=== PATIENT | female | born 1995 | race Caucasian/White ===

== ENCOUNTER → 2018-03-13 14:19 | Outpatient (CLI) | payer BC, SELFPAY ==
[2018-03-13 15:55] LABS: Hematocrit 36.5 % (37-47); Hemoglobin 12.7 g/dl (12.0-15.0); Mean Corp Hgb Conc 34.8 g/gl (32-36); Mean Corpuscular Hgb 31.5 pg (27.0-32.0); Mean Corpuscular Volume 90.6 fL (81-99); Mean Platelet Vol. 11.1 fl (6.2-12.0); Platelet Count 248 K/mm3 (150-450); RBC Distribution Width CV 13.1 % (11.6-14.6); RBC Distribution Width SD 42.7 fl (35.1-43.9); Red Blood Count 4.03 M/mm3 (4.2-5.4); White Blood Count 13.9 K/mm3 (4.4-11.0)
[2018-03-13 16:04] LABS: Scan Indicated on CBC? Y/N NO
[2018-03-13 16:05] LABS: Glucose Challenge Gest 1H 50g 134 mg/dL (70-140)
== END ==
PROVIDERS: Visit Provider Obstetrics & Gynecology
DX: Z34.82 Encounter for supervision of other normal pregnancy, second trimester (principal)
CPT/HCPCS: 36415; 82950; 85027

== ENCOUNTER → 2018-05-13 15:40 | Outpatient (CLI) | payer BC, SELFPAY ==
[2018-05-13 19:45] LABS: Group B Strep DNA By PCR Negative (Negative); Internal Control PASS; Probe Check PASS; Specimen Processing Control PASS
== END ==
PROVIDERS: Visit Provider Obstetrics & Gynecology
DX: Z36.85 Encounter for antenatal screening for Streptococcus B (principal)
CPT/HCPCS: 87081; 87653

== ENCOUNTER 2018-06-16 18:43 | Inpatient (IN) | payer BC, SELFPAY ==
[2018-06-16] MEDS: Lactated Ringers 1,000 ML 50 ML IV (19:45)
[2018-06-16] MEDS: 0.9% Saline Lock 10 ML Syringe IV (19:56)
[2018-06-16] MEDS: miSOPROStol 25 MCG TABLET VAGINAL (19:56)
[2018-06-16 20:00] LABS: Hematocrit 34.1 % (37-47); Hemoglobin 11.2 g/dl (12.0-15.0); Mean Corp Hgb Conc 32.8 g/gl (32-36); Mean Corpuscular Hgb 28.1 pg (27.0-32.0); Mean Corpuscular Volume 85.7 fL (81-99); Mean Platelet Vol. 11.9 fl (6.2-12.0); Platelet Count 190 K/mm3 (150-450); RBC Distribution Width CV 14.1 % (11.6-14.6); RBC Distribution Width SD 43.8 fl (35.1-43.9); Red Blood Count 3.98 M/mm3 (4.2-5.4); White Blood Count 10.5 K/mm3 (4.4-11.0)
[2018-06-16 20:01] VITALS: BMI 37.7
[2018-06-16 20:01] LABS: Scan Indicated on CBC? Y/N NO
[2018-06-17] VITALS (10 sets, daily range): BP systolic 98–144; BP diastolic 45–80; PULSE 88–109; RESP 16–18; TEMP 36.5–37.1; O2SAT 95–99
[2018-06-17] MEDS: miSOPROStol 25 MCG TABLET VAGINAL (00:04)
[2018-06-17] MEDS: Zolpidem Tartrate 5 MG Tablet PO (00:12)
[2018-06-17] MEDS: 0.9% Saline Lock 10 ML Syringe IV (02:36)
[2018-06-17] MEDS: Acetaminophen 325 MG Tablet PO (04:37)
[2018-06-17] MEDS: Lactated Ringers 1,000 ML 50 ML IV ×3 (07:19→15:24)
[2018-06-17] MEDS: fentaNYL-bupivacaine (epidural) 100 ML BAG EPIDURAL ×3 (08:45→17:20)
--- NOTE | 2018-06-17 12:35 | PCM.PN.OB ---
Subjective: More comfortable with epidural in place. Objective: Afeb VSS - Physical Exam General: Alert, Oriented x3, Cooperative, No apparent distress Abdomen: Gravid, Appropriate for Gestational Age Psych/Mental Status: Normal Affect Comment: CE 8 thick anterior lip 0 station Weight: 212 lb 12.8 oz Body Mass Index (BMI) 37.7 Laboratory Tests Past 24 Hrs 06/16/18 06/16/18 19:45 19:45 WBC 10.5 RBC 3.98 L Hgb 11.2 L Hct 34.1 L MCV 85.7 MCH 28.1 MCHC 32.8 RDW 14.1 RDW Differential 43.8 Plt Count 190 MPV 11.9 Blood Type O POSITIVE Antibody Screen NEGATIVE Medical Necessity - Tobacco Use Smoking Status: Never smoker Assessment/Plan Progressing in labor. Cat 1 FHR tracing
[2018-06-17] MEDS: Oxytocin 30 units/NS 500 ml 30 UNITS/500 ML IV.SOLN IV (15:24)
[2018-06-17] MEDS: Sodium Citrate/Citric Acid 30 ML UDC PO (18:49)
[2018-06-17] MEDS: Oxytocin 30 units/NS 500 ml 30 UNITS/500 ML IV.SOLN 167 UNITS IV (19:54)
--- NOTE | 2018-06-17 20:26 | DCINST_ITS ---
Discharge Diet: No Restrictions Discharge Activity: Return to Normal Activity, May Not Drive, May not drive while taking narcotic pain medications., May Shower Return to work on:: 08/17/18 May shower in (days): 0 May resume sexual activity in: 6 weeks Call your doctor if your incision/area has: Continuous Slow Oozing, Sudden Increased Bleeding, Increased Pain/ Swelling, Increased Redness, Foul Smelling Discharge, Swelling at the incision site Call your doctor if you observe: Fever of 101 or Higher, Inability to urinate, Inability to have a bowel movement, Using more than one pad per hour, Shortness of breath, Chest pain, Calf discomfort, Uncontrolled pain Remove Dressing in (days):: 2 Cleanse incision/area with: Soap & Water Allergies/Adverse Reactions: Allergies No Known Allergies Allergy (Verified 06/16/18 20:01) Medications to take at Discharge Tablet 1 tab PO DAILY 06/16/18 Ibuprofen 600 mg PO 4X/DAY PRN PRN #30 tab 06/17/18 Oxycodone [Oxyir] 5 mg PO Q4H PRN PRN 7 Days #28 tab 06/17/18 The following prescriptions were given: Oxycodone [Oxyir] 5 mg PO Q4H PRN PRN 7 Days #28 tab PRN Reason: strong pain Ibuprofen 600 mg PO 4X/DAY PRN PRN #30 tab PRN Reason: pain or cramping Primary Care Physician: Care Physician,No Primary [Primary Care Provider] - Test Results: Test results from this visit will be discussed in further detail at your follow- up appointment, if applicable. Please Follow Up With: Frantz Kapadia MD When: one week Proposed Discharge Date: 06/20/18
--- NOTE | 2018-06-17 20:26 | PCM.OB.CSR ---
Delivery Classification: ELIZABETH Final JOSE LUIS: 06/09/18 Final JOSE LUIS Source: US <20 weeks Gestational age: 41 Weeks and 1 Days Indications for : Sec. Arrest of Dilitation Description of Procedure: progressed to 7cm dilated then with no cervical record changer 4+ hours with inability to increase pitocin due to intolerance. Delivery was of a live male weighing 7lb14 oz with apgars of 8/9. Normal uterus, ovaries, and fallopian tubes. Amniotic Membrane Rupture Type: Spontaneous Amniotic Fluid Description: Clear Placenta Disposition: [facility] Drain: Hicks to straight drain Fluids Replaced: 1500cc LR Cord Entanglement: None Nuchal Cord Compression: Without compression Cord Vessel Description: 3 Vessels Esitmated Blood Loss (ml): 400cc Infant Gender: Male (1 minute): 8 (5 minute): 9 Delayed cord clamping: Yes Pre-op Antibiotic Given: Ancef 2 grams IV x1 Pt instructed on risks of surgery: Bleeding, Infection, Injury to surrounding structure(s) including bowel and bladder Complications: None - Admit VTE Documentation VTE Present on Admission: No VTE Mechan Device Prophylaxis: SCD's VTE Pharm Prophylaxis ordered?: No
--- NOTE | 2018-06-17 20:30 | OP.PCM_ITS ---
Delivery Classification: ELIZABETH Final JOSE LUIS: 06/09/18 Final JOSE LUIS Source: US <20 weeks Gestational age: 41 Weeks and 1 Days Indications for : Sec. 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 Delivery was of a live male weighing 7lb14 oz with apgars of 8/9. Normal uterus, ovaries, and fallopian tubes. Amniotic Membrane Rupture Type: Spontaneous Amniotic Fluid Description: Clear Placenta Disposition: [facility] Drain: Hicks to straight drain Fluids Replaced: 1500cc LR Cord Entanglement: None Nuchal Cord Compression: Without compression Cord Vessel Description: 3 Vessels Esitmated Blood Loss (ml): 400cc Infant Gender: Male (1 minute): 8 (5 minute): 9 Delayed cord clamping: Yes Pre-op Antibiotic Given: Ancef 2 grams IV x1 Pt instructed on risks of surgery: Bleeding, Infection, Injury to surrounding structure(s) including bowel and bladder Complications: None - Admit VTE Documentation VTE Present on Admission: No VTE Mechan Device Prophylaxis: SCD's VTE Pharm Prophylaxis ordered?: No
--- NOTE | 2018-06-17 20:31 | PCM.OPRPT ---
Report of Operation Date of Procedure: 06/17/18 Pre-Operative Diagnosis: Arrest of Dilation Post-Operative Diagnosis: Same Surgery/Procedure Performed:: Primary Low Transverse Section Description of Surgical Findings:: Maximum cervical dilation of 7 cm. Arrested for over 5 hours. Unable to increase pitocin dosing due to intolerance. Delivery was of live male weighing [id number]. Apgars were 8/9. Normal appearing uterus, ovaries, and fallopian tubes. machine load clerk: Eric Menezes Type of Anesthesia:: Epidural Anesthesiologist: Dmitry Aragon Special Medications: none Specimen's removed: cord blood Drains: kathleen Estimated Blood Loss (mL): 400cc Fluids Replaced: 1500cc LR Description of Procedure: Latoya was taken to the OR with IV running. She was given Ancef 2 grams intravenously for surgical prophylaxis. She was prepped and draped in the supine position with a leftward tilt. A kathleen catheter was previously placed. Once anesthesia was found to be adequate a Pfannensteil skin incision was made approximately 2 cm above the symphysis pubis. The underlying subcutaneous tissue was dissected down to the level of fascia using blunt and sharp dissection. The fascia was then incised in the midline. This incision was extended bilaterally using the Garcia scissors. The upper portion of the fascial defect was grasped with two Monica clamps, elevated and the rectus muscles dissected off with sharp and blunt dissection. In a similar fashion the rectus muscles were dissected off the lower portion of the fascia. The rectus muscles were then in the midline the peritoneum identified and entered bluntly. Once entered the peritoneal defect was extended using blunt retraction. A bladder blade was then placed. The vesicouterine peritoneum was then entered sharply and a bladder falp was created. The bladder blade was then replaced. The lower uterine segment was then incised in a transverse fashion. Once entered the uterine defect was enlarged using blunt lateral and superior traction. The baby's head was then delivered without difficulty followed by the body. Delayed cord clamping was employed. The cord was then clamped and cut. The baby was handed off to the waiting nursing staff for evaluation. The placenta was then delivered manually. The uterus was exteriorized and cleared of all clot and membranes. The uterine incision was then closed in 2 layers with #1 Vicryl suture. The posterior cul de sac was cleared of all clot and fluid. The uterus was then returned to the abdomen. The gutters were cleared of all clot. The uterine incision was reinspected and found to be hemostatic. The peritoneum was then closed with a running stitch of 2-0 Vicryl. The rectus muscles were reapproximated with interrupted stitches of 2-0 vicryl. The fascia was closed with a running stitch of #1 Stratofix suture. The subcutaneous tissue was closed with a running stitch of 2-0 Vicryl. The skin was closed with a subcuticular stitch of 4-0 monocryl. Sponge, lap, needle, and instrument counts were correct. Latoya was taken to the recovery room in stable condition. Grafts/Implants Used: none - Complications none - Admit VTE Documentation VTE Present on Admission: No VTE Mechan Device Prophylaxis: SCD's VTE Pharm Prophylaxis ordered?: No
[2018-06-17] MEDS: Lactated Ringers 1,000 ML 100 ML IV (20:40)
--- NOTE | 2018-06-17 20:46 | OP.PCM_ITS ---
Report of Operation Date of Procedure: 06/17/18 Pre-Operative Diagnosis: Arrest of Dilation Post-Operative Diagnosis: Same Surgery/Procedure Performed:: Primary Low Transverse Section Description of Surgical Findings:: Maximum cervical dilation of 7 cm. Arrested for over 5 hours. Unable to increase pitocin dosing due to intolerance. Delivery was of live male weighing [id number]. Apgars were 8/9. Normal appearing uterus, ovaries, and fallopian tubes. agricultural pilot: Eric Menezes Type of Anesthesia:: Epidural Anesthesiologist: Dmitry Aragon Special Medications: none Specimen's removed: cord blood Drains: kathleen Estimated Blood Loss (mL): 400cc Fluids Replaced: 1500cc LR Description of Procedure: Latoya was taken to the OR with IV running. She was given Ancef 2 grams intravenously for surgical prophylaxis. She was prepped and draped in the supine position with a leftward tilt. A kathleen catheter was previously placed. Once anesthesia was found to be adequate a Pfannensteil skin incision was made approximately 2 cm above the symphysis pubis. The underlying subcutaneous tissue was dissected down to the level of fascia using blunt and sharp dissection. The fascia was then incised in the midline. This incision was extended bilaterally using the Garcia scissors. The upper portion of the fascial defect was grasped with two Monica clamps, elevated and the rectus muscles dissected off with sharp and blunt dissection. In a similar fashion the rectus muscles were dissected off the lower portion of the fascia. The rectus muscles were then in the midline the peritoneum identified and entered bluntly. Once entered the peritoneal defect was extended using blunt retraction. A bladder blade was then placed. The vesicouterine peritoneum was then entered sharply and a bladder falp was created. The bladder blade was then replaced. The lower uterine segment was then incised in a transverse fashion. Once entered the uterine defect was enlarged using blunt lateral and superior traction. The baby's head was then delivered without difficulty followed by the body. Delayed cord clamping was employed. The cord was then clamped and cut. The baby was handed off to the waiting nursing staff for evaluation. The placenta was then delivered manually. The uterus was exteriorized and cleared of all clot and membranes. The uterine incision was then closed in 2 layers with #1 Vicryl suture. The posterior cul de sac was cleared of all clot and fluid. The uterus was then returned to the abdomen. The gutters were cleared of all clot. The uterine incision was reinspected and found to be hemostatic. The peritoneum was then closed with a running stitch of 2-0 Vicryl. The rectus muscles were reapproximated with interrupted stitches of 2-0 vicryl. The fascia was closed with a running stitch of #1 Stratofix suture. The subcutaneous tissue was closed with a running stitch of 2 -0 Vicryl. The skin was closed with a subcuticular stitch of 4-0 monocryl. Sponge, lap, needle, and instrument counts were correct. Latoya was taken to the recovery room in stable condition. Grafts/Implants Used: none - Complications none - Admit VTE Documentation VTE Present on Admission: No VTE Mechan Device Prophylaxis: SCD's VTE Pharm Prophylaxis ordered?: No
[2018-06-18] VITALS (15 sets, daily range): BP systolic 100–132; BP diastolic 49–82; PULSE 70–105; RESP 16–18; TEMP 36.1–36.7; O2SAT 94–100
[2018-06-18] MEDS: Cefazolin 1 GM/50 ML BAG IV ×2 (02:47→10:51)
[2018-06-18] MEDS: Ketorolac 30 MG/ML Syringe IV ×4 (02:48→21:35)
[2018-06-18 05:17] LABS: Hematocrit 29.4 % (37-47); Hemoglobin 9.6 g/dl (12.0-15.0); Mean Corp Hgb Conc 32.7 g/gl (32-36); Mean Corpuscular Hgb 28.1 pg (27.0-32.0); Mean Platelet Vol. 11.4 fl (6.2-12.0); Platelet Count 161 K/mm3 (150-450); RBC Distribution Width CV 14.7 % (11.6-14.6); Red Blood Count 3.42 M/mm3 (4.2-5.4); White Blood Count 15.6 K/mm3 (4.4-11.0)
[2018-06-18 05:18] LABS: Scan Indicated on CBC? Y/N NO
--- NOTE | 2018-06-18 06:39 | PCM.PN.OB ---
Subjective: No specific complaints. Objective: Afeb VSS Hgb stable - Physical Exam General: Alert, Oriented x3, Cooperative, No apparent distress Lungs: Clear to auscultation, Normal air movement Cardiovascular: Regular rate, Regular Rhythm Abdomen: Soft, Non Tender, Non-Distended, - - Dressing dry Skin: No rashes Neurological: Neuro grossly intact Psych/Mental Status: Normal Affect Comment: Lochia light Vital Signs Temp Pulse Resp BP Pulse Ox 97.2 F L 84 18 109/67 98 06/18/18 04:00 06/18/18 04:48 06/18/18 04:48 06/18/18 04:00 06/18/18 04:48 Oxygen Delivery Method Room Air Weight: 212 lb 12.8 oz Body Mass Index (BMI) 37.7 Intake and Output for Last 24 Hours 06/16/18 06/17/18 06/18/18 23:59 23:59 23:59 Intake Total 5066 / 5066 200 / 200 Output Total 1200 / 1200 950 / 950 Balance 3866 / 3866 -750 / -750 Laboratory Tests Past 24 Hrs 06/18/18 05:05 WBC 15.6 H RBC 3.42 L Hgb 9.6 L Hct 29.4 L MCV 86.0 MCH 28.1 MCHC 32.7 RDW 14.7 H RDW Differential 46.0 H Plt Count 161 MPV 11.4 Medical Necessity - Tobacco Use Smoking Status: Never smoker Assessment/Plan Doing well on POD#2. COntinue routine PO care.
[2018-06-18] MEDS: Lactated Ringers 1,000 ML 100 ML IV (06:53)
[2018-06-18] MEDS: Prenatal Vits Tablet 1 TABLET PO (10:51)
[2018-06-18] MEDS: 0.9% Saline Lock 10 ML Syringe IV ×2 (15:55→21:36)
[2018-06-19 02:10] VITALS: BP 126/80; PULSE 88; RESP 18; TEMP 36.6; O2SAT 95
[2018-06-19] MEDS: 0.9% Saline Lock 10 ML Syringe IV ×2 (03:48→09:02)
[2018-06-19] MEDS: Ketorolac 30 MG/ML Syringe IV ×2 (03:48→09:02)
[2018-06-19 07:30] VITALS: BP 118/75; PULSE 95; RESP 18; TEMP 37.2; O2SAT 95
--- NOTE | 2018-06-19 08:10 | PCM.PN.OB ---
Subjective: Pain controlled, passing flatus, no bowel movement yet. Tolerates regular diet. nurses well. Objective: AVSS - Physical Exam General: Alert, Oriented x3, Cooperative HEENT: Atraumatic, Normocephalic Lungs: Clear to auscultation, Normal air movement Cardiovascular: Regular rate, Regular Rhythm Abdomen: Bowel Sounds Present, Soft, Non Tender, Non-Distended, - - Fundus firm and nontender, scant lochia, incisional dressing c/d/i Extremities: No edema, No Calf Tenderness Psych/Mental Status: Normal Affect, Appropriate, Alert and oriented to time, place, person, mood and affect Vital Signs Temp Pulse Resp BP Pulse Ox 97.8 F 79 16 127/89 H 97 06/19/18 14:00 06/19/18 14:00 06/19/18 14:00 06/19/18 14:00 06/19/18 14:00 Oxygen Delivery Method Room Air Weight: 96.524 kg Body Mass Index (BMI) 37.7 Intake and Output for Last 24 Hours 06/17/18 06/18/18 06/19/18 23:59 23:59 23:59 Intake Total 5066 / 5066 986 / 986 Output Total 1200 / 1200 3900 / 3900 Balance 3866 / 3866 -2914 / -2914 Medical Necessity - Tobacco Use Smoking Status: Never smoker Assessment/Plan 22yo POD#2 s/p PLTCS doing well. -Rh positive -Routine postop care -
[2018-06-19] MEDS: Prenatal Vits Tablet 1 TABLET PO (09:07)
[2018-06-19 14:00] VITALS: BP 127/89; PULSE 79; RESP 16; TEMP 36.6; O2SAT 97
[2018-06-19] MEDS: Ibuprofen 600 MG Tablet PO ×2 (15:58→22:40)
[2018-06-19 20:30] VITALS: BP 127/80; PULSE 75; RESP 16; TEMP 36.8
[2018-06-20 01:30] VITALS: BP 136/80; PULSE 77; RESP 16; TEMP 37.1
[2018-06-20] MEDS: Ibuprofen 600 MG Tablet PO ×2 (06:29→14:13)
[2018-06-20 09:00] VITALS: BP 129/79; PULSE 83; RESP 18; TEMP 36.5; O2SAT 96
[2018-06-20 10:12] VITALS: BP 131/86; PULSE 69; RESP 16; TEMP 36.2; O2SAT 97
--- NOTE | 2018-06-20 10:13 | PCM.PN.OB ---
Subjective: No issues overnight. She is sore, but overall controlled. Passing flatus, had a bowel movement. No breast pain. Objective: AVSS - Physical Exam General: Alert, Oriented x3, Cooperative, No apparent distress HEENT: Atraumatic, Normocephalic Lungs: Clear to auscultation, Normal air movement Cardiovascular: Regular rate, Regular Rhythm Abdomen: Bowel Sounds Present, Soft, Non Tender, Non-Distended, - - Fundus firm and nontender, dressing c/d/i Extremities: No edema, No Calf Tenderness Neurological: Neuro grossly intact Psych/Mental Status: Normal Affect, Appropriate, Alert and oriented to time, place, person, mood and affect Vital Signs Temp Pulse Resp BP Pulse Ox 97.7 F L 83 18 129/79 H 96 06/20/18 09:00 06/20/18 09:00 06/20/18 09:00 06/20/18 09:00 06/20/18 09:00 Oxygen Delivery Method Room Air Weight: 96.524 kg Body Mass Index (BMI) 37.7 Intake and Output for Last 24 Hours 06/18/18 06/19/18 06/20/18 23:59 23:59 23:59 Intake Total 986 / 986 Output Total 3900 / 3900 Balance -2914 / -2914 Medical Necessity - Tobacco Use Smoking Status: Never smoker Assessment/Plan 22yo POD#3 s/p PLTCS doing well. -Rh positive -Routine postop care -
--- NOTE | 2018-06-20 10:19 | PCM.DC.SUM ---
Discharge Date and Diagnosis Date of Admission: 06/16/18 Date of Discharge: 06/20/18 Hospital Course and Treatment Consultations 06/16/18 18:50 Consult: Anesthesia Routine Comment: Reason For Exam: labor Operations: - - section Summary of Care Provided: The patient is a 22 year old F admitted in labor. She underwent an uncomplicated section at 41 1/7 weeks gestation for arrest of descent. Her post-operative course was unremarkable and she was discharged to home on post-operative day #3. Discharge Diet: No Restrictions Discharge Activity: Return to Normal Activity, May Not Drive, May not drive while taking narcotic pain medications., May Shower Return to work on:: 08/17/18 May shower in (days): 0 May resume sexual activity in: 6 weeks Call your doctor if your incision/area has: Continuous Slow Oozing, Sudden Increased Bleeding, Increased Pain/ Swelling, Increased Redness, Foul Smelling Discharge, Swelling at the incision site Call your doctor if you observe: Fever of 101 or Higher, Inability to urinate, Inability to have a bowel movement, Using more than one pad per hour, Shortness of breath, Chest pain, Calf discomfort, Uncontrolled pain Remove Dressing in (days):: 2 Cleanse incision/area with: Soap & Water Home Medications: Medications to take at Discharge Tablet 1 tab PO DAILY 06/16/18 Ibuprofen 600 mg PO 4X/DAY PRN PRN #30 tab 06/17/18 Oxycodone [Oxyir] 5 mg PO Q4H PRN PRN 7 Days #28 tab 06/17/18 Following Prescrptions Were Given to Patient: Oxycodone [Oxyir] 5 mg PO Q4H PRN PRN 7 Days #28 tab PRN Reason: strong pain Ibuprofen 600 mg PO 4X/DAY PRN PRN #30 tab PRN Reason: pain or cramping Primary Care Physician: Care Physician,No Primary [Primary Care Provider] - Please Follow Up With: Frantz Kapadia MD When: one week Medical Necessity - Tobacco Use Smoking Status: Never smoker Meaningful Use Info Meaningful Use Diagnoses (Choose all that apply): None applicable
[2018-06-20] MEDS: Prenatal Vits Tablet 1 TABLET PO (13:44)
== END 2018-06-20 14:45 | disposition home or self-care (01) | DRG 766 ==
PROVIDERS: Obstetrics & Gynecology; Admitting Provider Obstetrics & Gynecology; Visit Provider Obstetrics & Gynecology
DX: O62.1 Secondary uterine inertia (principal); O48.0 Post-term pregnancy; O42.02 Full-term premature rupture of membranes, onset of labor within 24 hours of rupture; Z3A.41 41 weeks gestation of pregnancy; Z37.0 Single live birth
CPT/HCPCS: 59050; 85027; 86850; 86900; 99218; J7120; A4216; G0378

== ENCOUNTER 2018-06-25 12:30 | Outpatient (CLI) | payer BC, SELFPAY | END 2018-06-25 13:30 | disposition home or self-care (01) | LOC: WPOUT 12:34 → WP 12:35 | PROVIDERS: Visit Provider Obstetrics & Gynecology | DX: Z39.1 Encounter for care and examination of lactating mother (principal) | CPT/HCPCS: 96152 ==

== ENCOUNTER → 2018-11-03 14:03 | Outpatient (CLI) | payer BC, SELFPAY ==
[2018-11-06 13:16] LABS: HPV Reflexed? NOT INDICATED
--- OUTSIDE RECORDS SUMMARY | 2019-02-05 01:37 | XMS RPT_ITS ---
:1995 External Reference #:[id number] Author Organization OHIP Care Team Providers Name Role Phone MARYHUGO CHAPMANE Attending Unavailable SINA MOYA T Referring Unavailable NO PRIMARY CAREMD Primary Care Unavailable Frantz Kapadia Attending Unavailable Primay Care Physicia, No Primary Care Unavailable Sina Osorio Attending Unavailable Frantz Kapadia Admitting Unavailable SealFrantz chu Attending Unavailable SealFrantz chu Referring Unavailable Primay Care Physicia, No Primary Care Unavailable SealFrantz chu Attending Unavailable Primay Care Physicia, No Primary Care Unavailable SealFrantz chu Attending Unavailable Primay Care Physicia, No Primary Care Unavailable PROBLEMS PROBLEMS DATE TYPE CONDITION / CODE ATTENDING STATUS SOURCE 11/04/2018 Unknown Z12.4 - Encounter Frantz Kapadia for screening for Community malignant neoplasm [facility] / Repository Z12.4(ICD-10) 06/20/2018 Unknown G89.18 - Other acute Frantz Kapadia postprocedural pain Community / G89.18(ICD-10) Hospital Repository 05/14/2018 Unknown Z36.85 - Encounter Frantz Kapadia Active [place] for Community screening for Hospital Streptococcus B / Repository Z36.85(ICD-10) 03/17/2018 Unknown Z34.82 - Encounter Yuval Osorio for supervision of [facility] other normal Hospital , second Repository trimester / Z34.82(ICD-10) PROCEDURES PROCEDURES No Procedure Records FoundRESULTS RESULTS PAP I-G W/RFX HRHPV Collected: 11/03/2018 Status: F Source: [place] 8:55 AM [facility] REPOSITORY Order Comment: CYTOLOGY INFORMATION: - CLINICAL INFORMATION: - DATE LMP/MENOPAUSE: 09/29/18 LMP - COLLECTION VIAL: Thin Prep Vial - AVIONICS TEST TECHNICIAN SOURCE: CERVICAL/ENDOCERVICAL - COLLECTION TECHNIQUE: BRUSH/SPATULA Specimen Comment: [id number] Specimen Comment: Source.............Cervix;Endocervix Specimen Comment: LMP / Prev Treat...[id number] Specimen Comment: No. of containers..01 ThinPrep Vial TYPE CODE TESTS RESULT OUT OF RANGE REFERENCE UNITS LAB L7400.0800 . Normal DIAGN Comment Result Comment: NEGATIVE FOR INTRAEPITHELIAL LESION AND MALIGNANCY. LAB L7400.0900 . Normal ADEQ Comment Result Comment: Satisfactory for evaluation. Endocervical and/or squamous metaplastic cells (endocervical component) are present. LAB L7400.1400 . Normal PERFORM Comment Result Comment: [place], Clean Up Helper Banquet (ASCP) LAB L7400.2575 . Normal TEST METHOD Comment Result Comment: This liquid based ThinPrep(R) pap test was screened with the use of an image guided system. LAB L7400.2600 . Normal . COMM LAB L7400.2700 . Normal PAPSMR Comment Result Comment: The Pap smear is a screening test designed to aid in the detection of premalignant and malignant conditions of the uterine cervix. It is not a diagnostic procedure and should not be used as the sole means of detecting cervical cancer. Both false-positive and false-negative reports do occur. LAB L7400.2800 . Normal HPV RFLX Comment Result Comment: The HPV DNA reflex criteria were not met with this specimen result therefore, no HPV testing was performed. Performed at: [address] [id number] Pipeline Technician: Gi Johnson MD, Phone: [phone] Performed By: #### L7400.0350 #### [facility] (refer to report for specific site) refer to report for address and phone number DISCHARGE SUMMARY Observed: 06/20/2018 Status: F Source: [place] 10:27 AM [facility] REPOSITORY [facility] Medical Records Department [address] [place] [address] Discharge Summary 06/20/18 1019 MR#: [id number] Acct: [id number] Name: LATOYA GRIFFITHS Rep #: [id number] : 1995 22 From: Sina Ziegler MD PCP: Care Physician, No Primary Status: ADM IN Location: [address] Discharge Date and Diagnosis Date of Admission: 06/16/18 Date of Discharge: 06/20/18 Hospital Course and Treatment Consultations 06/16/18 18:50 Consult: Anesthesia Routine Comment: Reason For Exam: labor Operations: - - section Summary of Care Provided: The patient is a 22 year old F admitted in labor. She underwent an uncomplicated section at 41 1/7 weeks gestation for arrest of descent. Her post-operative course was unremarkable and she was discharged to home on post-operative day #3. Discharge Diet: No Restrictions Discharge Activity: Return to Normal Activity, May Not Drive, May not drive while taking narcotic pain medications., May Shower Return to work on:: 08/17/18 May shower in (days): 0 May resume sexual activity in: 6 weeks Call your doctor if your incision/area has: Continuous Slow Oozing, Sudden Increased Bleeding, Increased Pain/ Swelling, Increased Redness, Foul Smelling Discharge, Swelling at the incision site Call your doctor if you observe: Fever of 101 or Higher, Inability to urinate, Inability to have a bowel movement, Using more than one pad per hour, Shortness of breath, Chest pain, Calf discomfort, Uncontrolled pain Remove Dressing in (days):: 2 Cleanse incision/area with: Soap AND Water Home Medications: Medications to take at Discharge Tablet 1 tab PO DAILY 06/16/18 Ibuprofen 600 mg PO 4X/DAY PRN PRN #30 tab 06/17/18 Oxycodone [Oxyir] 5 mg PO Q4H PRN PRN 7 Days #28 tab 06/17/18 Following Prescrptions Were Given to Patient: Oxycodone [Oxyir] 5 mg PO Q4H PRN PRN 7 Days #28 tab PRN Reason: strong pain Ibuprofen 600 mg PO 4X/DAY PRN PRN #30 tab PRN Reason: pain or cramping Primary Care Physician: Care Physician,No Primary [Primary Care Provider] - Please Follow Up With: Frantz Kapadia MD When: one week Medical Necessity - Tobacco Use Smoking Status: Never smoker Meaningful Use Info Meaningful Use Diagnoses (Choose all that apply): None applicable 06/20/18 1027 <Electronically signed by Sina Osorio MD> Date Sina Osorio MD Cosigner Signature (if applicable): Date CC: No Primary Care Physician; Sina Osorio MD Signed CBC-COMPLETE BLOOD CNT Collected: 06/18/2018 Status: F Source: [place] NO DIFF 5:05 AM [facility] REPOSITORY Order Comment: Comments: Day #1 Reason for Laboratory Test TYPE CODE TESTS RESULT OUT OF RANGE REFERENCE UNITS LAB L100.1000 4.4-11.0 K/mm3 High WBC 15.6 LAB L100.1200 4.2-5.4 M/mm3 Low RBC 3.42 LAB L100.1300 12.0-15.0 g/dl Low HGB 9.6 LAB L100.1400 37-47 % Low HCT 29.4 LAB L100.1500 81-99 fL Normal MCV 86.0 LAB L100.1600 27.0-32.0 pg Normal MCH 28.1 LAB L100.1700 32-36 g/gl Normal MCHC 32.7 LAB L100.1810 11.6-14.6 % High RDW CV 14.7 LAB L100.1820 35.1-43.9 fl High RDW SD 46.0 LAB L100.1900 150-450 K/mm3 Normal PLT 161 LAB L100.2000 6.2-12.0 fl Normal MPV 11.4 Performed By: #### L100.0500 #### [facility] [address] [place], [address] OPERATIVE REPORT Observed: 06/17/2018 Status: F Source: [place] 8:47 PM [facility] REPOSITORY [facility] Medical Records Department [address] [place] [address] Operative Report 06/17/182030 MR#: [id number] Acct: [id number] Name: LATOYA GRIFFITHS Rep #: [id number] : 1995 22 From: Frantz Kapadia MD PCP: Care Physician, No Primary Status: ADM IN Location: [place] [address] Report of Operation Date of Procedure: 06/17/18 Pre-Operative Diagnosis: Arrest of Dilation Post-Operative Diagnosis: Same Surgery/Procedure Performed:: Primary Low Transverse Section Description of Surgical Findings:: Maximum cervical dilation of 7 cm. Arrested for over 5 hours. Unable to increase pitocin dosing due to intolerance. Delivery was of live male weighing 1zy83ui. Apgars were 8/9. Normal appearing uterus, ovaries, and fallopian tubes. armored vehicle officer: Eric Menezes Type of Anesthesia:: Epidural Anesthesiologist: Dmitry Aragon Special Medications: none Specimen's removed: cord blood Drains: kathleen Estimated Blood Loss (mL): 400cc Fluids Replaced: 1500cc LR Description of Procedure: Latoya was taken to the OR with IV running. She was given Ancef 2 grams intravenously for surgical prophylaxis. She was prepped and draped in the supine position with a leftward tilt. A kathleen catheter was previously placed. Once anesthesia was found to be adequate a Pfannensteil skin incision was made approximately 2 cm above the symphysis pubis. The underlying subcutaneous tissue was dissected down to the level of fascia using blunt and sharp dissection. The fascia was then incised in the midline. This incision was extended bilaterally using the Garcia scissors. The upper portion of the fascial defect was grasped with two Monica clamps, elevated and the rectus muscles dissected off with sharp and blunt dissection. In a similar fashion the rectus muscles were dissected off the lower portion of the fascia. The rectus muscles were then in the midline the peritoneum identified and entered bluntly. Once entered the peritoneal defect was extended using blunt retraction. A bladder blade was then placed. The vesicouterine peritoneum was then entered sharply and a bladder falp was created. The bladder blade was then replaced. The lower uterine segment was then incised in a transverse fashion. Once entered the uterine defect was enlarged using blunt lateral and superior traction. The baby's head was then delivered without difficulty followed by the body. Delayed cord clamping was employed. The cord was then clamped and cut. The baby was handed off to the waiting nursing staff for evaluation. The placenta was then delivered manually. The uterus was exteriorized and cleared of all clot and membranes. The uterine incision was then closed in 2 layers with #1 Vicryl suture. The posterior cul de sac was cleared of all clot and fluid. The uterus was then returned to the abdomen. The gutters were cleared of all clot. The uterine incision was reinspected and found to be hemostatic. The peritoneum was then closed with a running stitch of 2-0 Vicryl. The rectus muscles were reapproximated with interrupted stitches of 2-0 vicryl. The fascia was closed with a running stitch of #1 Stratofix suture. The subcutaneous tissue was closed with a running stitch of 2-0 Vicryl. The skin was closed with a subcuticular stitch of 4-0 monocryl. Sponge, lap, needle, and instrument counts were correct. Latyoa was taken to the recovery room in stable condition. Grafts/Implants Used: none - Complications none - Admit VTE Documentation VTE Present on Admission: No VTE Mechan Device Prophylaxis: SCD's VTE Pharm Prophylaxis ordered?: No 06/17/18 2047 <Electronically signed by Frantz Kapadia MD> Date Frantz Kapadia MD CC: No Primary Care Physician; Frantz Kapadia MD Signed OPERATIVE REPORT Observed: 06/17/2018 Status: F Source: [place] 8:31 PM [facility] REPOSITORY [facility] Medical Records Department [address] [place] [address] Operative Report 06/17/182025 MR#: [id number] Acct: [id number] Name: LATOYA GRIFFITHS Rep #: [id number] : 1995 From: Frantz Kapadia MD PCP: Care Physician, No Primary Status: ADM IN Y Location: [place] [address] Delivery Classification: ELIZABETH Final JOSE LUIS: 06/09/18 Final JOSE LUIS Source: US <20 weeks Gestational age: 41 Weeks and 1 Days Indications for : Sec. Arrest of Dilitation Description of Procedure: progressed to 7cm dilated then with no cervical jacket changer 4+ hours with inability to increase pitocin due to intolerance. Delivery was of a live male weighing 7lb14 oz with apgars of 8/9. Normal uterus, ovaries, and fallopian tubes. Amniotic Membrane Rupture Type: Spontaneous Amniotic Fluid Description: Clear Placenta Disposition: [facility] Drain: Kathleen to straight drain Fluids Replaced: 1500cc LR Cord Entanglement: None Nuchal Cord Compression: Without compression Cord Vessel Description: 3 Vessels Esitmated Blood Loss (ml): 400cc Gender: Male (1 minute): 8 (5 minute): 9 Delayed cord clamping: Yes Pre-op Antibiotic Given: Ancef 2 grams IV x1 Pt instructed on risks of surgery: Bleeding, Infection, Injury to surrounding structure(s) including bowel and bladder Complications: None - Admit VTE Documentation VTE Present on Admission: No VTE Mechan Device Prophylaxis: SCD's VTE Pharm Prophylaxis ordered?: No 06/17/182030 <Electronically signed by Frantz Kapadia MD> Date Frantz Kapadia MD CC: No Primary Care Physician; Frantz Kapadia MD Signed DISCHARGE INSTRUCTION Observed: 06/17/2018 Status: F Source: [place] 8:26 PM [facility] REPOSITORY [facility] Medical Records Department [address] [place] [address] Instructions for Home/Discharge Instructions 06/17/182023 MR#: [id number] Acct: [id number] Name: LATOYA GRIFFITHS Rep #: [id number] : 1995 22 From: Frantz Kapadia MD PCP: Care Physician, No Primary Status: ADM IN Discharge Diet: No Restrictions Discharge Activity: Return to Normal Activity, May Not Drive, May not drive while taking narcotic pain medications., May Shower Return to work on:: 08/17/18 May shower in (days): 0 May resume sexual activity in: 6 weeks Call your doctor if your incision/area has: Continuous Slow Oozing, Sudden Increased Bleeding, Increased Pain/ Swelling, Increased Redness, Foul Smelling Discharge, Swelling at the incision site Call your doctor if you observe: Fever of 101 or Higher, Inability to urinate, Inability to have a bowel movement, Using more than one pad per hour, Shortness of breath, Chest pain, Calf discomfort, Uncontrolled pain Remove Dressing in (days):: 2 Cleanse incision/area with: Soap AND Water Allergies/Adverse Reactions: Allergies No Known Allergies Allergy (Verified 06/16/18 20:01) Medications to take at Discharge Tablet 1 tab PO DAILY 06/16/18 Ibuprofen 600 mg PO 4X/DAY PRN PRN #30 tab 06/17/18 Oxycodone [Oxyir] 5 mg PO Q4H PRN PRN 7 Days #28 tab 06/17/18 The following prescriptions were given: Oxycodone [Oxyir] 5 mg PO Q4H PRN PRN 7 Days #28 tab PRN Reason: strong pain Ibuprofen 600 mg PO 4X/DAY PRN PRN #30 tab PRN Reason: pain or cramping Primary Care Physician: Care Physician,No Primary [Primary Care Provider] - Test Results: Test results from this visit will be discussed in further detail at your follow-up appointment, if applicable. Please Follow Up With: Frantz Kapadia MD When: one week Proposed Discharge Date: 06/20/18 06/17/182025 <Electronically signed by Frantz Kapadia MD> Date Frantz Kapadia MD CC: No Primary Care Physician CBC-COMPLETE BLOOD CNT Collected: 06/16/2018 Status: F Source: [place] NO DIFF 7:45 PM [facility] REPOSITORY TYPE CODE TESTS RESULT OUT OF RANGE REFERENCE UNITS LAB L100.1000 4.4-11.0 K/mm3 Normal WBC 10.5 LAB L100.1200 4.2-5.4 M/mm3 Low RBC 3.98 LAB L100.1300 12.0-15.0 g/dl Low HGB 11.2 LAB L100.1400 37-47 % Low HCT 34.1 LAB L100.1500 81-99 fL Normal MCV 85.7 LAB L100.1600 27.0-32.0 pg Normal MCH 28.1 LAB L100.1700 32-36 g/gl Normal MCHC 32.8 LAB L100.1810 11.6-14.6 % Normal RDW CV 14.1 LAB L100.1820 35.1-43.9 fl Normal RDW SD 43.8 LAB L100.1900 150-450 K/mm3 Normal PLT 190 LAB L100.2000 6.2-12.0 fl Normal MPV 11.9 Performed By: #### L100.0500 #### [facility] [address] [place], [place], [id number] TYPE AND SCREEN Collected: 06/16/2018 Status: F Source: [place] 7:45 PM [facility] REPOSITORY Order Comment: Reason for Type AND Screen/Red Cells: ROUTINE TYPE CODE TESTS RESULT OUT OF RANGE REFERENCE UNITS LAB B10.0800 O Normal BLOOD TYPE GEL POSITIVE LAB B100.4000 Normal Antibody NEGATIVE Screen Performed By: #### B101.7450 #### [facility] [address] [place], [place], [id number] GROUP B STREP DNA Collected: 05/13/2018 Status: F Source: [place] BY PCR 2:40 PM [facility] REPOSITORY Order Comment: Source: Vaginal-Rectal TYPE CODE TESTS RESULT OUT OF RANGE REFERENCE UNITS LAB L8200.0100 Negative Normal GBS TEST Negative RESULT Performed By: #### L8200.0000 #### [facility] [address] [place], [place], [id number] Observed: 05/13/2018 Status: F Source: [place] CULTURE, GROUP B 12:00 AM [facility] STREPTOCOCCUS REPOSITORY MARAL Culture Group B Beta Streptococcus is not isolated. Performed By: #### M100.1800 #### [facility] [address] [place], [address] PROGRESS NOTE Observed: 03/25/2018 Status: COMPLETED Source: [place] 9:15 AM [facility] REPOSITORY Met with patient. Here for arrhythmia Medical, surgical and family hx reviewed Primip- healthy Psycho/Social risk: Support System: and extended family Financial Stressors: denies Family Dynamics: lives with Behavioral Health Issues: denies. 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 Consent to share information with [facility] team, OB and reduction plant supervisor signed. Pt plans to deliver [place] [facility]. Kettle Girl is yet to be decided. Male fetus- name is Baltazar Method of feeding: Breast Ultrasound findings today: See report in procedures for details. Pt will follow up with her primary OB Reinforced continued OB care with [place] [facility] Pt will call with reduction plant supervisor selection The total patient time of the visit was 10 minutes, of which greater than 50% of the time was spent counseling and coordinating care. PROGRESS NOTE Observed: 03/25/2018 Status: COMPLETED Source: [place] 9:15 AM [facility] REPOSITORY The total patient time of the visit was 30 minutes, of which greater than 50% of the time was spent counseling and coordinating care. CBC-COMPLETE BLOOD CNT Collected: 03/13/2018 Status: F Source: [place] NO DIFF 2:15 PM [facility] REPOSITORY TYPE CODE TESTS RESULT OUT OF RANGE REFERENCE UNITS LAB L100.1000 4.4-11.0 K/mm3 High WBC 13.9 LAB L100.1200 4.2-5.4 M/mm3 Low RBC 4.03 LAB L100.1300 12.0-15.0 g/dl Normal HGB 12.7 LAB L100.1400 37-47 % Low HCT 36.5 LAB L100.1500 81-99 fL Normal MCV 90.6 LAB L100.1600 27.0-32.0 pg Normal MCH 31.5 LAB L100.1700 32-36 g/gl Normal MCHC 34.8 LAB L100.1810 11.6-14.6 % Normal RDW CV 13.1 LAB L100.1820 35.1-43.9 fl Normal RDW SD 42.7 LAB L100.1900 150-450 K/mm3 Normal PLT 248 LAB L100.2000 6.2-12.0 fl Normal MPV 11.1 Performed By: #### L100.0500 #### [facility] [address] [place], [address] GLUCOSE CHALLENGE GEST Collected: 03/13/2018 Status: F Source: [place] 1H 50G 2:15 PM [facility] REPOSITORY TYPE CODE TESTS RESULT OUT OF RANGE REFERENCE UNITS LAB L501.0250 70-140 mg/dL Normal GLU GEST 134 50g 1H Performed By: #### L501.0250 #### [facility] [address] [place], [address] ALLERGIES ALLERGIES DATE TYPE / CODE NAME / CODE REACTION SEVERITY SOURCE 06/16/2018 Drug No Known Unknown [place] Allergy/381004401(S Allergies/F0019 [facility] [place]) [address](RXNORM) Hospital Repository Miscellaneous NO KNOWN [place] Allergy/400273799(S ALLERGIES [facility] Hospital Repository ENCOUNTERS ENCOUNTERS ADMIT/DISCHARGE ACCOUNT ADMITTING ENCOUNTER LOCATION SOURCE NUMBER CLASS 11/03/2018 [id number] [facility] ing:LABSPEC Repository 06/25/2018/06/25/20 [id number] Ambulatory [address] ing:WPOUT Repository 06/16/2018/06/20/20 [id number] Frantz Kapadia Inpatient [address] ing:WPRoom: Repository LE345Asb: 1 05/13/2018 [id number] Ambulatory [facility] ing:LABSPEC Repository 03/25/2018/03/25/20 [id number] Ambulatory Building:[address] Repository 03/13/2018 [id number] [facility] ing:WOBLAB Repository PAYERS PAYERS ENCOUNTER GUARANTOR PAYER SUBSCRIBER SOURCE 11/03/2018 LATOYA JIMENEZB: [place] [id number] SR Insurance:ANTHEMPolic [id number], y Number: [facility] [address]Hcj: [id number] Repository Date:2565-92-08XT [address]OX () [address], [place] [address]PR: 11/03/2018 Secondary NOT GIVENUNK [place] Insurance:[facility]LF [facility]Y [facility] Effective Repository Date:2018-11-03 06/25/2018 LATOYA Primary ANNA GRIFFITHSDOB: [place] [id number] SR Insurance:ANTHEMPolic [id number], y Number: [facility] [address]Tzh: [id number] Repository Date:6222-39-53XW BOX () [id number], [place] [address]PE: 06/25/2018 Secondary NOT GIVENUNK [place] Insurance:SELF PAY [facility] Number: Effective Repository Date:2018-06-25 06/16/2018 LATOYA Primary ANNA GRIFFITHSDOB: [place] [id number] SR Insurance:ANTHEMPolic [id number], y Number: [facility] [address]Tii: [id number] Repository Date:9110-54-94GK BOX () [id number], [place] [address]OO: 06/16/2018 Secondary NOT GIVENUNK [place] Insurance:SELF PAY [facility] Number: Effective Repository Date:2018-05-13 05/13/2018 LATOYA Primary ANNA KONG [place] [id number] Insurance:ANTHEMPolic [address] y Number: [place], [place] [address]Ndm: [id number] Repository Date:7315-21-61PA [address]OX () [id number], [place] [address]UJ: 05/13/2018 Secondary NOT GIVENUNK [place] Insurance:SELF PAY [facility] Number: Effective Repository Date:2018-05-13 03/25/2018 LATOYA Primary ANNA GRIFFITHSDOB: [facility] MILLERDOB: Insurance:ANTHEMPolic [id number] [facility] [id number] y Number: [address] Repository [facility] [address] [id number] [address] [place] [address], Date: [place] [address] [place] [address]Dhx: () 03/13/2018 LATOYA Primary ANNA Ruffin [id number] TR Insurance:ANTHEMP[address], y Number: [facility] [address]Wlp: [id number] Repository Date:2467-33-76JO [address]OX () [id number], [place] [address]AO: 03/13/2018 Secondary NOT GIVENUNK [place] Insurance:SELF PAY [facility] Number: Effective Repository Date:2018-03-13
== END ==
PROVIDERS: Visit Provider Obstetrics & Gynecology
DX: Z12.4 Encounter for screening for malignant neoplasm of cervix (principal)
CPT/HCPCS: 88175; G0145